=== PATIENT | female | born 1955 | race Caucasian/White ===

== ENCOUNTER → 2020-12-30 10:31 | Outpatient (CLI) | payer MEDICARE, OTHER, MEDICAID, SELFPAY ==
--- NOTE | 2020-12-30 | DI.RAD.S_ITS ---
PROCEDURE: XR LUMBAR SPINE 6V W BENDING INDICATIONS: BACK PAIN TECHNIQUE: 5 views of the lumbar spine acquired, including flexion and extension views. COMPARISON: None. FINDINGS: Bones: 5 nonrib-bearing vertebrae are present. There is normal bony alignment. No vertebral body compression fractures. No suspicious bony lesions. There is a mild degree of degenerative disc disease along the lumbosacral spine and moderate facet osteoarthritis that becomes progressively more prominent from L3 through S1. Slight grade 1 anterolisthesis at L4-L5 results. Soft tissues: Overlying bowel gas pattern is normal. No suspicious soft tissue calcifications. Flexion/extension: There is normal range of motion, with preserved normal alignment. IMPRESSION: Mild degenerative disc disease along the thoracolumbar junction and lumbosacral spine. Facet osteoarthritis is more prominent from L3 through S1 and results in ligamentous laxity allowing mild grade 1 anterolisthesis of L4 on L5 seen on the lateral view. No compression fracture found. Dictated by: Thiago Cooley M.D. on 12/30/2020 at 13:27 Approved by: Thiago Cooley M.D. on 12/30/2020 at 13:29
--- NOTE | 2020-12-30 | DI.MRI.S_ITS ---
PROCEDURE: MR LUMBAR SPINE WO CON INDICATIONS: BACK PAIN TECHNIQUE: Noncontrast sagittal T1 spin echo and T2 fast echo, sagittal STIR, axial T1 and T2 fast spin echo through the lumbar spine. In cases with scoliosis, additional coronal T2 fast spin echo may be performed. COMPARISON: [facility], MR, L-SPINE WITHOUT CONTRAST, 01/31/2015, 12:15. [facility], RG, MRI L-SPINE W/O CONTRAST, 07/19/2010, 13:02. [facility], CR, XR LUMBAR SPINE 6V W BENDING, 12/30/2020, 10:33. [facility], CR, SPINE LUMB 2 OR 3VW, 01/15/2015, 10:15. FINDINGS: Image quality: This examination is limited by involuntary motion artifact. Alignment and Curvature: There is minimal retrolisthesis seen at the L1-L2 level. Minimal anterolisthesis is seen at L3-L4 and L4-L5.. Bone Marrow: Marrow is of normal overall signal. No acute vertebral body compression fractures. Spinal Cord: Conus medullaris terminates at the L1 level. Visualized cord demonstrates normal signal and size. Paraspinous Soft Tissues: No paravertebral masses. T12-L1: Normal appearance. L1-L2: The disc height is well-preserved. Loss of disc signal is seen at this level. Mild disc bulge is seen, which is eccentric to the left. Mild facet joint hypertrophy is seen. There is mild left-sided and no right-sided neural foraminal narrowing seen. No significant central canal narrowing is seen. When comparison is made with the prior images, these findings are similar. L2-L3: The disc height is well-preserved. Loss of disc signal is seen at this level. Mild to moderate disc bulge is seen. Moderate facet joint hypertrophy is seen. Associated hypertrophy of the ligamentum flavum can be seen. Mild bilateral neural foraminal narrowing is seen. Moderate central canal narrowing is seen. These imaging findings have progressed compared to the prior study. L3-L4: Mild loss of disc height is seen. Loss of disc signal is seen. Mild to moderate disc bulge is seen, with a central disc protrusion. Moderate to prominent facet hypertrophy is seen, left worse than right. There is keux-jj-kluwczhh right-sided and moderate left-sided neural foraminal narrowing seen. Moderate central canal narrowing is seen. These imaging findings have progressed compared to the prior study. L4-L5: The disc height is well-preserved. Loss of disc signal is seen at this level. Mild generalized disc bulge is seen. There is moderate facet hypertrophy seen. There is moderate left-sided and moderate to severe right-sided neural foraminal narrowing seen. Mild to moderate central canal narrowing can be seen. When comparison is made with the prior images, these findings are similar. L5-S1: The disc height is well-preserved. Loss of disc signal is seen at this level. Mild generalized disc bulge is seen. There is moderate right-sided and jrvu-yz-wtnatcyo left-sided facet hypertrophy seen. No significant neural foraminal or central canal narrowing can be seen. No significant change from the prior. IMPRESSION: Multiple levels of lumbar spine degenerative change are seen, which are overall progressed compared to 2015. Dictated by: Rod Riley M.D. on 12/30/2020 at 11:36 Approved by: Rod Riley M.D. on 12/30/2020 at 11:40
== END ==
PROVIDERS: Referring Provider Pain Medicine Pain Medicine; Visit Provider Pain Medicine Pain Medicine
DX: M47.26 Other spondylosis with radiculopathy, lumbar region (principal); M47.27 Other spondylosis with radiculopathy, lumbosacral region
CPT/HCPCS: 72114; 72148

== ENCOUNTER → 2023-01-11 11:57 | Outpatient (CLI) | payer MEDICARE, MEDICAID, SELFPAY ==
--- NOTE | 2023-01-11 | DI.RAD.S_ITS ---
PROCEDURE: XR HIP W PEL IF DONE NEY MIN 4V INDICATIONS: pain in right hip TECHNIQUE: AP pelvis with lateral view(s) of the bilateral hip(s). COMPARISON: None. FINDINGS: Bones: No fractures or dislocations. Pelvic ring appears intact. No suspicious bony lesions. Soft tissues: The visualized bowel gas pattern is normal. No suspicious soft tissue calcifications. IMPRESSION: Unremarkable bilateral hip radiographs Approved by: Kvng Powers M.D. on 01/11/2023 at 18:44
== END ==
PROVIDERS: PCP Internal Medicine; Referring Provider Pain Medicine Pain Medicine; Visit Provider Pain Medicine Pain Medicine
DX: M25.551 Pain in right hip (principal)
CPT/HCPCS: 73522

== ENCOUNTER → 2023-08-28 11:19 | Outpatient (CLI) | payer MEDICARE, MEDICAID, SELFPAY ==
--- NOTE | 2023-08-28 | DI.MRI.S_ITS ---
PROCEDURE: MR LUMBAR SPINE WO CON INDICATIONS: SPINAL STENOSIS TECHNIQUE: Noncontrast sagittal T1 spin echo and T2 fast echo, sagittal STIR, and T2 fast spin echo through the lumbar spine. In cases with scoliosis, additional coronal T2 fast spin echo may be performed. COMPARISON: [facility], MR, MR LUMBAR SPINE WO CON, 12/30/2020, 11:45. FINDINGS: Image quality: Excellent. Alignment and Curvature: Again noted is trace retrolisthesis of L1 on L2, 3 mm anterolisthesis of L3 on L4, and 5 mm anterolisthesis of L4 on L5. Bone Marrow: Marrow is of normal overall signal. Incidental note made of the presence of a T10 hemangioma. No acute vertebral body compression fractures. Spinal Cord: Conus medullaris terminates at the L1-L2 level. Visualized cord demonstrates normal signal and size. Paraspinous Soft Tissues: No paravertebral masses. T12-L1: Disc bulge. No canal stenosis or foraminal stenosis. L1-L2: Disc bulge. Facet hypertrophy. Trace retrolisthesis. No canal stenosis or significant foraminal stenosis. L2-L3: Unchanged findings. Disc bulge. Facet hypertrophy. Mild canal stenosis. No significant foraminal stenosis. L3-L4: Unchanged findings. Prominent facet hypertrophy and ligament hypertrophy. Mild anterolisthesis of L3 on L4. Unchanged moderate canal stenosis. Sdee-kh-wffrkqpx unchanged foraminal stenosis. L4-L5: Slight interval decrease in disc height. Unchanged anterolisthesis of L4 on L5. Prominent facet hypertrophy. Unchanged mild canal stenosis. There is moderate right foraminal narrowing with mild flattening deformity on the exiting right L4 nerve root. There is wzrt-gf-kkwsddke left foraminal narrowing. L5-S1: Unchanged facet hypertrophy. No significant canal stenosis. Pxnb-dx-pjurjgyz bilateral foraminal stenosis. IMPRESSION: 1. Relatively stable findings. 2. Again noted is multilevel underlying facet arthropathy. 3. Canal stenosis is mild at L2-L3, moderate at L3-L4, and mild at L4-L5. 4. Multilevel relatively mild foraminal narrowing. There is moderate right foraminal narrowing at L4-L5. Dictated by: Dre Shankar M.D. on 08/30/2023 at 9:04 Approved by: Dre Shankar M.D. on 08/30/2023 at 9:12
== END ==
PROVIDERS: PCP Internal Medicine; Referring Provider Pain Medicine Pain Medicine; Visit Provider Pain Medicine Pain Medicine
DX: M48.062 Spinal stenosis, lumbar region with neurogenic claudication (principal); M48.07 Spinal stenosis, lumbosacral region; M47.816 Spondylosis without myelopathy or radiculopathy, lumbar region; M47.817 Spondylosis without myelopathy or radiculopathy, lumbosacral region
CPT/HCPCS: 72148

== ENCOUNTER → 2024-03-13 12:39 | Outpatient (CLI) | payer MEDICARE, MEDICAID, SELFPAY ==
--- NOTE | 2024-03-13 12:43 | DI.RAD.S_ITS ---
PROCEDURE: XR KNEE RT 3V INDICATIONS: RIGHT KNEE PAIN TECHNIQUE: 3 views of the knee were acquired. COMPARISON: None. FINDINGS: Bones: No acute fractures or dislocations. No suspicious bony lesions. Mild tricompartmental joint space narrowing. Soft tissues: No joint effusion. No suspicious soft tissue calcifications. Surgical clips project over the posterior medial lower thigh. IMPRESSION: Mild tricompartmental osteoarthrosis. No acute osseous abnormality. Approved by: Mulugeta Naranjo M.D. on 03/14/2024 at 8:28
== END ==
LOC: RAD 12:40
PROVIDERS: PCP Internal Medicine; Referring Provider Pain Medicine Pain Medicine; Visit Provider Pain Medicine Pain Medicine
DX: M17.11 Unilateral primary osteoarthritis, right knee (principal)
CPT/HCPCS: 73562

== ENCOUNTER → 2024-07-24 11:33 | Outpatient (CLI) | payer MEDICARE, MEDICAID, SELFPAY ==
--- NOTE | 2024-07-24 11:41 | DI.MRI.S_ITS ---
PROCEDURE: MR THORACIC SPINE WO CON INDICATIONS: radiculopathy TECHNIQUE: Noncontrast sagittal T1 spine echo and T2 fast spin echo, sagittal STIR, and T2 fast spin echo through the thoracic spine. COMPARISON: [facility], CR, XR THORACIC SPINE MIN 4V, 07/24/2024, 12:20. FINDINGS: Image quality: Excellent. Alignment and Curvature: There is normal bony alignment. Bone Marrow: Marrow is of normal overall signal. No acute vertebral body compression fractures. Benign hemangioma in the T10 vertebral body. Mild multilevel degenerative endplate changes including Modic type 1 degenerative endplate edema at the T6-7 level and Modic type 2 degenerative endplate changes at T7-8 Spinal Cord: Visualized spinal cord is normal in size and signal. Paraspinous Soft Tissues: No paravertebral masses. Miscellaneous: On axial images, central canal and foramina appear widely patent at all scanned levels. Sternotomy wires are noted. IMPRESSION: Mild multilevel degenerative endplate changes including mild endplate edema at T6-7. No significant spinal canal stenosis or neural foraminal narrowing. Approved by: Mulugeta Naranjo M.D. on 07/24/2024 at 13:50
--- NOTE | 2024-07-24 11:41 | DI.RAD.S_ITS ---
PROCEDURE: XR THORACIC SPINE 3V INDICATIONS: BACK PAIN TECHNIQUE: 3 views of the thoracic spine were acquired. COMPARISON: None. FINDINGS: Bones: No fractures or dislocations. Minimal grade 1 anterolisthesis of C3 on C4 and C4 on C5 redemonstrated. There is mild exaggeration of thoracic kyphosis. No suspicious bony lesions. 12 pairs of ribs are noted, and appear intact where visualized. Soft tissues: No paravertebral stripe thickening. Median sternotomy sutures and right upper quadrant surgical clips are noted. Atherosclerotic vascular calcifications noted. IMPRESSION: Minimal grade 1 anterolisthesis of C3 on C4 and C4 on C5 without evidence of acute osseous abnormality. Dictated by: Singh Chavez M.D. on 07/24/2024 at 18:37 Approved by: Singh Chavez M.D. on 07/24/2024 at 18:38
--- NOTE | 2024-07-24 11:41 | DI.MRI.S_ITS ---
PROCEDURE: MR CERVICAL SPINE WO CON INDICATIONS: radiculopathy TECHNIQUE: Noncontrast sagittal T1 spin echo and T2 fast spin echo, sagittal STIR, foraminal oblique sagittal T2 fast spin echo, and axial gradient echo or T2 fast spin echo through the cervical spine. COMPARISON: [facility], CR, XR CERVICAL SPINE 4V OR 5V, 07/24/2024, 12:20. FINDINGS: Image quality: Excellent. Alignment and Curvature: There is normal bony alignment. Bone Marrow: Marrow demonstrates normal overall signal. Spinal Cord: Visualized spinal cord has normal size and signal. No cerebellar tonsillar herniation. Paraspinous Soft Tissues: No paravertebral masses. Prevertebral soft tissues are normal in thickness. C2-C3: Disc desiccation. No significant spinal canal stenosis or neural foraminal narrowing. C3-C4: Disc desiccation as well as left greater than right uncovertebral joint and facet hypertrophy. Findings result in moderate to severe narrowing of the left neural foramen and mild narrowing of the right neural foramen without significant spinal canal stenosis. C4-C5: Disc desiccation and mild bilateral uncovertebral joint and facet hypertrophy. Findings result in slqo-rj-ojomgkbo narrowing of the bilateral neural foramina without significant spinal canal stenosis. C5-C6: Disc desiccation and mild bilateral uncovertebral joint and facet hypertrophy. Findings result in mild narrowing of the bilateral neural foramina without significant spinal canal stenosis. C6-C7: Disc desiccation and bilateral uncovertebral joint and facet hypertrophy, which result in qwte-vy-kwxxwrsn narrowing of the bilateral neural foramina without significant stenosis. C7-T1: Disc desiccation without significant spinal canal stenosis or neural foraminal narrowing. IMPRESSION: 1. At C3-4, degenerative changes result in moderate to severe narrowing of the left neural foramen and mild narrowing of the right neural foramen without significant spinal canal stenosis. 2. Additional multilevel degenerative disc disease and facet hypertrophy as described in detail in the body of the report. No high-grade spinal canal stenosis. Approved by: Mulugeta Naranjo M.D. on 07/24/2024 at 13:36
--- NOTE | 2024-07-24 11:41 | DI.RAD.S_ITS ---
PROCEDURE: XR CERVICAL SPINE 4V OR 5V INDICATIONS: BACK PAIN TECHNIQUE: 5 views of the cervical spine acquired. COMPARISON: None. FINDINGS: Bones: No fractures or dislocations to the T1 level. There is minimal grade 1 anterolisthesis of C3 on C4 and C4 on C5 in neutral position which is resolved on extension and slightly exaggerated on flexion. There is otherwise normal alignment without evidence of acute osseous abnormality. Moderate multilevel bilateral facet hypertrophy is noted. Soft tissues: No prevertebral soft tissue swelling. Median sternotomy sutures are identified. IMPRESSION: Minimal grade 1 anterolisthesis of C3 on C4 and C4 on C5 which is resolved on extension is slightly exaggerated on flexion. No evidence of acute osseous abnormality. Dictated by: iSngh Chavez M.D. on 07/24/2024 at 18:34 Approved by: Singh Chavez M.D. on 07/24/2024 at 18:36
== END ==
PROVIDERS: PCP Internal Medicine; Referring Provider Pain Medicine Pain Medicine; Visit Provider Pain Medicine Pain Medicine
DX: M47.22 Other spondylosis with radiculopathy, cervical region (principal); M50.11 Cervical disc disorder with radiculopathy, high cervical region; M48.02 Spinal stenosis, cervical region; M47.24 Other spondylosis with radiculopathy, thoracic region; M40.204 Unspecified kyphosis, thoracic region
CPT/HCPCS: 72050; 72074; 72141; 72146

== ENCOUNTER → 2025-03-09 10:02 | Outpatient (CLI) | payer MEDICARE, MEDICAID, SELFPAY ==
--- NOTE | 2025-03-09 10:04 | DI.MRI.S_ITS ---
PROCEDURE: MR SHOULDER LT W CON INDICATIONS: RC TEAR TECHNIQUE: After the administration of 12 mL of dilute intra-articular Gadolinium contrast, oblique coronal T1 and T2 spin echo with fat saturation, oblique sagittal T1 spin echo with and without fat saturation, oblique sagittal T2 fast spin echo with fat saturation, axial T1 spin echo with fat saturation through the shoulder. COMPARISON: None. FINDINGS: Quality: Adequate. Tendons: Rotator cuff tendons: Full-thickness non insertional tear of the anterior fibers of the supraspinatus tendon. Additional near full-thickness delamination of the articular insertional fibers of the remaining supraspinatus tendon. Infraspinatus and teres minor tendons are intact. Long head of biceps tendon: Intact. No dislocation. Muscles: No disproportionate fatty degeneration of the rotator cuff musculature. Acromioclavicular joint: Mild degenerative change. Glenohumeral joint: Labrum: Diffuse degeneration. Cartilage: Full-thickness cartilage thinning at the posterior glenoid and medial humeral head with additional full-thickness cartilage defect of the superior humeral head. Marginal osteophyte formation. Fluid: Adequate distention of joint by intra-articular injection of gadolinium contrast containing fluid. Alignment: No dislocation. Bursa: Subacromial/subdeltoid bursa: Distended by contrast. Subcoracoid bursa: Nondistended. Bones: No fracture. IMPRESSION: Full-thickness partial width supraspinatus tendon tear. Advanced glenohumeral osteoarthritis. Mild acromioclavicular osteoarthritis. Dictated by: Abdelrahman Velázquez M.D. on 03/09/2025 at 12:11 Approved by: Abdelrahman Velázquez M.D. on 03/09/2025 at 12:15
--- NOTE | 2025-03-09 10:04 | DI.RAD.S_ITS ---
PROCEDURE: FL ARTHROGRAM SHOULDER LT INDICATIONS: RC TEAR COMPARISON: [facility], MR, MR SHOULDER LT W CON, 03/09/2025, 11:17. TECHNIQUE: The indications, alternatives, benefits, risks, and complications of the procedure were explained to the patient. Written informed consent was obtained and placed in the chart. The shoulder was examined fluoroscopically and a site for needle placement chosen for entry into the glenohumeral joint from an anterior approach. The skin was prepped and draped in a sterile fashion, and 1% lidocaine infiltrated from skin down to joint capsule. A spinal needle was inserted into the glenohumeral joint, and a small amount of iodinated contrast media injected to confirm intra-articular placement of the needle tip. This was followed by approximately 12 mL dilute solution of a gadolinium containing MR contrast agent. The needle was removed and a dressing was applied. The patient was given postprocedural instructions and sent to the MR suite for MR imaging. FINDINGS: A single fluoroscopic spot image demonstrates intra-articular location of injected iodinated contrast. IMPRESSION: Successful fluoroscopically guided administration of dilute Gadolinium solution into the shoulder joint for MR arthrogram. Dictated by: Lauren Montoya [facility] Interpreted: Abdelrahman Velázquez MD on 03/09/2025 at 11:25 Transcribed by: SUSAN on 03/09/2025 at 11:37 Approved by: Abdelrahman Velázquez M.D. on 03/14/2025 at 12:47
[2025-03-09] MEDS: LIDOCAINE 1% 20 ML INJ (11:21)
[2025-03-09] MEDS: SODIUM CHLORIDE 0.9 % 20 ML VIAL IV (11:22)
== END ==
PROVIDERS: PCP Family Medicine; Referring Provider Pain Medicine Pain Medicine; Visit Provider Pain Medicine Pain Medicine
DX: M25.512 Pain in left shoulder (principal); M25.561 Pain in right knee; G89.29 Other chronic pain
CPT/HCPCS: 23350; 73040; 73222; 99214; A9579; Q9967

== ENCOUNTER → 2025-03-25 14:10 | Outpatient (CLI) | payer MEDICARE, MEDICAID, SELFPAY ==
--- NOTE | 2025-03-25 14:11 | DI.MRI.S_ITS ---
PROCEDURE: MR KNEE RT WO CON
== END ==
LOC: MRI 14:11
PROVIDERS: PCP Family Medicine; Referring Provider Physical Medicine & Rehabilitation; Visit Provider Physical Medicine & Rehabilitation
DX: S83.241A Other tear of medial meniscus, current injury, right knee, initial encounter (principal); S83.281A Other tear of lateral meniscus, current injury, right knee, initial encounter; M17.11 Unilateral primary osteoarthritis, right knee; M71.21 Synovial cyst of popliteal space [Baker], right knee; M25.561 Pain in right knee; M25.461 Effusion, right knee; G89.29 Other chronic pain
CPT/HCPCS: 73721